=== PATIENT | female | born 1990 | race Two or more races ===

== ENCOUNTER 2016-07-07 20:45 | Inpatient (IN) | payer MEDICAID ==
[2016-07-07] MEDS ORDERED: LIDOCAINE 1% (PRES FREE) 30 ML VIAL ONE (21:15)
[2016-07-07] MEDS ORDERED: MINERAL OIL 25 ML BOT ONE (21:15)
[2016-07-07] MEDS ORDERED: LACTATED RINGERS 1,000 ML ONE (21:15)
[2016-07-07] MEDS ORDERED: OXYTOCIN 10 UNITS/ML VIAL ONE (21:15)
[2016-07-07] MEDS ORDERED: LIDOCAINE Viscous 2% 15 ML UDCUP ONE (21:15)
[2016-07-07] MEDS ORDERED: IV START KIT ONE (21:15)
[2016-07-07] MEDS ORDERED: PUMP TUBING ONE (21:15)
[2016-07-07] MEDS ORDERED: SODIUM CHLORIDE 0.9% FLUSH 10 ML ONE (21:16)
[2016-07-07] MEDS ORDERED: OXYTOCIN IN LR 500 ML IV ONE ×2 (21:16→21:51)
[2016-07-07 23:10] LABS: ABSOLUTE NEUTROPHIL COUNT 5.3 K/mm3 (1.8-7.7); BASO # 0.1 K/mm3 (0.0-0.2); BASO % 0.6 % (0.2-1.0); EOS # 0.1 (0.0-0.5); EOS % 1.6 % (0.9-2.9); HEMATOCRIT 38.9 % (37.0-47.0); IMM NEUT% 0.1 % (0-1); LYMPH # 2.2 (1.0-4.8); LYMPH % 26.8 % (15-45); MEAN CELL VOLUME 85.3 fl (81.0-99.0); MEAN CORPUSCULAR HEMOGLOBIN 28.5 pg (27.0-31.0); MEAN CORPUSCULAR HGB CONC 33.4 g/dl (33.0-37.0); MEAN PLATELET VOLUME 11.1 fl (7.4-10.4); MONO # 0.5 (0.0-0.8); NEUT % 64.9 % (43-75); PLATELET COUNT 142 K/mm3 (130-400); RED CELL DISTRIBUTION WIDTH 13.1 % (11.5-14.5)
[2016-07-07 23:27] LABS: ALB/GLOB RATIO 1.1 (>1.0); ALBUMIN 3.5 gm/dL (3.5-5.7); CALCIUM 8.9 mg/dL (8.6-10.3)
[2016-07-08] MEDS ORDERED: DINOPROSTONE 10 MG SUP VG ONE (00:53)
[2016-07-08] MEDS ORDERED: ZOLPIDEM TARTRATE 5 MG TABLET PO PRN (00:54)
[2016-07-08 01:55] VITALS: BMI 29.0
[2016-07-08] MEDS: LACTATED RINGERS 1,000 ML IV SCH ×7 (06:17→19:59)
--- NOTE | 2016-07-08 08:15 | PDOC36 ---
Provider Note Note: cc: Admission H&P HPI: 26 y.o. year old FABIANO 07/23/2016, by Last Menstrual Period at 37w5d who was seen in the clinic yesterday who was complaining of a 3-4 day history of a chronic frontal headache that has been moderate to severe. She had tried Tylenol for the pain without relief and was also seeing some sparkles in her eyes which was new. The patient was familiar with these symptoms as she has a history of preeclampsia in a previous and was concerned that she may be developing this again as this was similar to her previous presentation. I sent [facility] labs yesterday and have reviewed them. Platelets 228 -> 132, LFTs normal, Protein:Creatinine Ratio 0.7. REVIEW OF SYSTEMS GENERAL:~ No fever EYES:~ As above CARDIOVASCULAR:~ No chest pain. RESPIRATORY:~ No severe shortness of breath or cough. GASTROINTESTINAL:~ No nausea or vomiting or right upper quadrant pain.~ PSYCHIATRIC:~ No anxiety or depression. PROBLEMS GDMA1 History of PreEclampsia History of abnormal LFTs Desires BTL OB HISTORY #: 1, Date: 08/15/06, Sex: Male, Weight: 3 kg (6 lb 9.8 oz), GA: 40w0d, Delivery : Vaginal, Spontaneous Delivery, Apgar1: None, Apgar5: None, Living: Yes, Comments: Dx preeclampsia on last 2 months of .~ #: 2, Date: 08/30/08, Sex: Male, Weight: 3.487 kg (7 lb 11 oz), GA: 39w0d, Delivery: Induction, Apgar1: None, Apgar5: None, Living: Yes, Comments: Vaginal delievery, induced d/t HTN.~ #: 3, Current PSH None SOC HX Reports that she has never smoked. She has never used smokeless tobacco. She reports that she does not drink alcohol or use illicit drugs. ALL No Known Allergies MEDICATIONS ~ Vit-Fe Fumarate-FA ( VITAMINS PLUS) 27-1 MG tablet, Take 1 tablet by mouth daily., Disp: 90 tablet, Rfl: 3 PHYSICAL EXAMINATION VITAL SIGNS:~ AFVSS Estimated body mass index is 33.05 FHT:~ 130s moderate variability positive accels negative decels category I [employer]:~ q5-7 min SVE:~ FT/30/-3 GENERAL:~ No distress CARDIOVASCULAR:~ Regular rate and rhythm, no murmur, JVD or pedal edema. RESPIRATORY:~ Clear to auscultation bilaterally, respiratory effort is nonlabored at rest. GASTROINTESTINAL:~ Gravid no fundal tenderness NEUROLOGIC:~ Deep tendon reflexes are 2+ in the knees.~ Cranial nerves II-XII are grossly intact. PSYCHIATRIC:~ Alert and oriented x3, judgement and memory is intact, mood is pleasant. LABS & STUDIES O+ Antibody- Rubella Immune Hep B- HIV- GC/Chlamydia- Trep- Hgb 13.3 GBS Negative ULTRASOUNDS 19 wk - c/w lmp. normal survey. ant grade 1 placenta, low. rescan in 6wks to recheck placenta. fluid wnl 25 wk - c/w first us. male. transverse. ant grade 1 placenta. no previa. normal fluid. 33 wk - normal growth. vertex male. normal fluid subj ant placenta. grade 1, no previa. ASSESSMENT 26 y.o. year old FABIANO 07/23/2016, by Last Menstrual Period at 37w5d with moderate to severe headache unresponsive to meds as well as visual symptoms as well as dropping platelets with elevated urine protein in the setting someone with preeclampsia. PLAN Atypical PreE: Headache unresponsive to meds, with visual symptoms, dropping platelets (228->132) and 0.7 prot;cr ratio in someone with a h/o preE. Discussed the case with the patient and will admit for induction as the patient is now at term and the patient feels like this is a similar presentation as when with her previous . The risk of waiting at this point would be riskier than inducing. GDMA1: CBGs controlled, CBG today Desires BTL: Papers signed Jose Herrera MD MPH
[2016-07-08] MEDS ORDERED: ACETAMINOPHEN 500 MG TABLET PO PRN (08:46)
--- NOTE | 2016-07-08 08:46 | PDOC36 ---
Provider Note Subject: S: Pt comfortable. Denies FERREIRA or vision changes this morning. O: 113/72 83 Gen: NAD Reflexes: patella 3+, no clonus SVE: 350/-3 [place]: irregular q3-9min FHT: baseline 155bpm/mod isauro/no accels/intermittent variables A/P: 26 yo @ 37w6d, IOL for atypical preE dx by proteinuria (P/C: 0.7), FERREIRA, vision changes. Pt has been normotensive since admission. 1. Labor: cervidil placed at 1am, removed at 6am for recurrent decels. Pt was 1cm at 6am. Pt now 3/50/-3, will start pitocin for augmentation. AROM when head more applied in pelvis. 2. atypical preE: pt currently asx. Will order tylenol for FERREIRA. Will start Mg if pt develops severe range BPs. 3. FWB: cat 2 for intermittent variables. Continue to monitor closely. 4. GBS neg 5. Pain: pt prefers nonmedicated delivery
[2016-07-08] MEDS: OXYTOCIN IN LR 500 ML IV PRN ×11 (09:00→21:48)
--- NOTE | 2016-07-08 20:25 | PDOC36 ---
Provider Note Subject: S: pt comfortable. O: 130/74 68 SVE: 3/50/-3, ballotable head [place]: q2-3m FHT: baseline 145bpm/mod isauro/+accels/intermittent variables A/P: 26 yo @ 37w6d, IOL for atypical preE. Latent labor: pt on pitocin, not uncomfortable or making much cervical change. head not yet engaged for AROM. Will continue to titrate pitocin. FWB: Cat 2 now for intermittent variables but overall reassuing. Atypical PreE: pt asx, BP stable. GBS neg Pain: declines meds, pt is comfortable
--- NOTE | 2016-07-08 20:27 | PDOC36 ---
Provider Note Subject: FHT was notable for recurrent late decels x 1 hour, moderate variability. SVE was 4/60/-3, still with ballotable head. Plan to dc pitocin x 1 hour to allow for recovery. Will attempt to AROM or restart pitocin after recovery period.
--- NOTE | 2016-07-08 21:56 | PDOC36 ---
Provider Note Subject: S: pt comfortable, but feeling very tired. Requested no AROM at this time, would like to try to rest tonight. O: 126/74 63 SVE: deferred, last check /-3 per RN @ 2039 [place]: q4-5min FHT: baseline 145bpm/mod isauro/+accels/ no decels A/P: 26 yo @ 37w6d, IOL for atypical preE. Labor: latent labor. Was planning to AROM pt, but pt declined and requested to wait until she is more painful or in active labor. She would like to rest a little bit tonight. Discussed with pt plan to restart pitocin and she was agreeable. Atypical preE: pt asx, will recheck PIH labs in am FWB: now category 1, since pitocin was turned off @ 1919.
[2016-07-09] MEDS: LACTATED RINGERS 1,000 ML IV SCH (03:06)
[2016-07-09 07:33] LABS: RED CELL DISTRIBUTION WIDTH 13.2 % (11.5-14.5)
--- NOTE | 2016-07-09 07:36 | PDOC36 ---
Provider Note Subject: I am assuming care of Yen this am. In brief 26 yo @ 38w0d, IOL for atypical preE with elevated Pr/Cr ratio of 0.7 with normal BP's throughout hospitalization and history of prior two pregnancies affected by preeclampsia. S: Feeling more pain with contractions and appears to be entering active phase. O: 132/68 P 53 T 36.7 SVE: 5/80/0 [place]: q2-3 min FHT: baseline 140bpm/mod isauro/+accels/ no decels Pit at 8 A/P: 26 yo @ 38w0d, IOL for atypical preE. Labor: AROM just performed. Currently progressing into active labor and more painful. Anticipate . Continue with pit. Atypical preE: pt asx, Recheck PIH labs this am. Given BP's have not been above threshold of 140's I don't feel strongly about magnesium at this time. Observe for now. FWB: category 1 RH + GBS neg
[2016-07-09 07:55] LABS: ALBUMIN 3.2 gm/dL (3.5-5.7); CALCIUM 8.7 mg/dL (8.6-10.3)
[2016-07-09 07:56] LABS: HEMATOCRIT 39.1 % (37.0-47.0); HEMOGLOBIN 13.4 gm/l (12.0-16.0); MEAN CELL VOLUME 84.8 fl (81.0-99.0); MEAN CORPUSCULAR HEMOGLOBIN 29.1 pg (27.0-31.0); MEAN CORPUSCULAR HGB CONC 34.3 g/dl (33.0-37.0)
--- NOTE | 2016-07-09 08:30 | PCMDEL ---
Delivery Note - Labor 1st stage (hr/min):: 3 hours 2nd stage (hr/min):: 4 min 3rd stage (hr/min):: 4 min Total (hr/min):: 3 hours Pushed (hr/min):: 4 min - Delivery Delivery (Date): 07/09/16 Delivery (Time): 08:16 Infant Gender: Male Presentation: Cephalic Position: OA Umbilical Cord: 3 Vessel Delayed Cord Clamping:: < 1-2 min 1 Minute Total: 9 5 Minute Total: 9 Placenta:: Intact EBL:: 300 Perineum:: intact Comments:: Presented for IOL for atypical preeclampsia/HELLP syndrome. Started with cervidil x 1. Transitioned to pitocin augmentation. AROM performed and quickly progressed to complete. Delivered via with normal maternal efforts. monitoring category I during delivery. Vigorous . Delayed cord clamping x 90 sec. Active third stage of labor with pit and fundal massage.
[2016-07-09] MEDS ORDERED: MAGNESIUM HYDROXIDE 30 ML UDCUP PO PRN (08:35)
[2016-07-09] MEDS ORDERED: BENZOCAINE/MENTHOL 60 APPLIC/BOT TP PRN (08:35)
[2016-07-09] MEDS ORDERED: DOCUSATE SODIUM 100 MG CAPSULE PO PRN (08:35)
[2016-07-09] MEDS ORDERED: LANOLIN 50 APPLIC/7G TUBE TP PRN (08:35)
[2016-07-09] MEDS: IBUPROFEN 800 MG TABLET PO PRN ×2 (08:52→21:05)
[2016-07-10 06:32] LABS: HEMATOCRIT 31.2 % (37.0-47.0); HEMOGLOBIN 10.3 gm/l (12.0-16.0)
[2016-07-10] MEDS ORDERED: CEFAZOLIN SODIUM 2 GRAM DUPLEX 50 ML IV ONE ×2 (07:04→09:30)
[2016-07-10] MEDS ORDERED: LACTATED RINGERS 1,000 ML ONE (07:04)
[2016-07-10] MEDS: LACTATED RINGERS 1,000 ML IV SCH (07:17)
[2016-07-10] MEDS ORDERED: CITRIC ACID/SODIUM CITRATE 15 ML UDCUP PO ONE (09:00)
[2016-07-10] MEDS ORDERED: FENTANYL 100 MCG/2 ML VIAL ONE ×2 (09:05→11:05)
[2016-07-10] MEDS ORDERED: MIDAZOLAM HCL 1 MG/ML 2ML VIAL ONE (09:05)
[2016-07-10] MEDS ORDERED: LIDOCAINE 2% (PRES FREE) 5 ML VIAL ONE (09:05)
[2016-07-10] MEDS ORDERED: PROPOFOL 20 ML IV ONE (09:05)
[2016-07-10] MEDS ORDERED: SPINAL PROCEDURAL TRAY 1 EACH ONE (09:05)
[2016-07-10] MEDS ORDERED: HYDROCODONE/ACETAMINOPHEN 5/325MG TABLET PO PRN (10:21)
[2016-07-10] MEDS ORDERED: LANOLIN 50 APPLIC/7G TUBE TP PRN (10:21)
[2016-07-10] MEDS ORDERED: BENZOCAINE/MENTHOL 60 APPLIC/BOT TP PRN (10:21)
[2016-07-10] MEDS ORDERED: IBUPROFEN 800 MG TABLET PO PRN (10:21)
--- NOTE | 2016-07-10 10:21 | PCMBTL ---
Brief Post Op Note: Date of Procedure: 07/10/16 Start Time: 0900 Preoperative Diagnosis: undesired fertility Postoperative Diagnosis: same Procedure: PP BTL Surgeon: Rosemary Villarreal MD Assist: Dr. Gordon Anesthesia: spinal Findings: normal ovaries, tubes, and uterus Condition: stable Complications: none IV Fluids: 1000 mLs of LR Urine Output: 50 mLs Estimated Blood Loss: 5 mLs Specimens: bilateral tube segments patient taken to the operating room where spinal anesthesia was felt to be adequate, patient prepped and draped in sterile fashion, 2 cm infraumbilical incision made with scalpal and carried through to underlying layer of fascia, fascia entered with scalpal and incision extended katerally. the alaina 0 used and the right tube was ligated and excised 2 cm and cauterized ends, and the left tube was grasped and a 2 cm segment ligated with 0 plain gut and excised and cauterized the ends. fascia reapproximated with 0 vicryl, and skin closed with 4.0 vicryl. no complications. patient taken to recovery in stable condition.
[2016-07-10] MEDS: FENTANYL 100 MCG/2 ML VIAL IV PRN ×2 (11:11→11:15)
--- NOTE | 2016-07-10 12:27 | PDOC44 ---
- Subjective Day: 1 Reports Pain Tolerable, Reports , Reports Lochia Light, Reports Tolerating Regular Diet, Denies Nausea, Denies Vomiting, Denies Fever - Objective Temp Pulse Resp BP Pulse Ox 98 F 66 16 135/85 97 07/10/16 11:59 07/10/16 11:59 07/10/16 11:59 07/10/16 11:59 07/10/16 11:59 Lab Results 07/10/16 05:20 Hgb 10.3 L D Hct 31.2 L Current Medications Generic Name Dose Route Start Last Admin Trade Name Freq PRN Reason Stop Dose Admin Acetaminophen/Hydrocodone Bitart 1 - 2 tab 07/09/16 08:35 [place] 5/325 PO Q4H PRN Pain (Moderate) Benzocaine/Menthol 1 applic 07/09/16 08:35 Dermoplast TP PRN PRN Patient Comfort Docusate Sodium 100 mg 07/09/16 08:35 Colace PO DAILY PRN Comfort Emollient Ointment 1 applic 07/09/16 08:35 07/09/16 08:53 [id number] TP 1 gtts PRN PRN Administration sore nipples Fentanyl Citrate 50 mcg 07/10/16 11:06 07/10/16 11:15 Fentanyl IV 50 mcg Q1H PRN Administration Pain Ibuprofen 800 mg 07/09/16 08:35 07/09/16 21:05 Motrin PO 800 mg Q6H PRN Administration Pain (Mild) Magnesium Hydroxide 30 ml 07/09/16 08:35 Milk Of Magnesia PO BEDTIME PRN Constipation Sodium Chloride 10 ml 07/09/16 08:35 07/10/16 05:30 Normal Saline 10ml Flush IV 10 ml PRN PRN Administration IV Flush - Physical Exam General: Afebrile, No Acute Distress Psych/Mental Status: Mood/Affect Appropriate, Bonding Well Neurological: Alert, Oriented x 4 Lungs: Clear to Auscultation Bilaterally Cardiovascular: Regular Rate and Rhythm Breast: Nipples Intact Fundus: Firm, Midline Extremities: Full ROM, No Edema, No Tenderness Skin: Normal Color, Warm, Dry, Intact, No Rash Wound 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 Doing well. (2) Preeclampsia Status: AcuteAssessment/Plan: BP's stable. Labs stable throughout course. Asymptomatic. (3) Encounter for tubal ligation Status: AcuteAssessment/Plan: s/p tubal ligation. Routine care and d/c tomorrow. Disposition: Anticipate DC Home Tomorrow
[2016-07-10] MEDS: IBUPROFEN 800 MG TABLET PO PRN (14:56)
[2016-07-10] MEDS: HYDROCODONE/ACETAMINOPHEN 5/325MG TABLET PO PRN (14:57)
[2016-07-11] MEDS: HYDROCODONE/ACETAMINOPHEN 5/325MG TABLET PO PRN (02:35)
[2016-07-11] MEDS: IBUPROFEN 800 MG TABLET PO PRN (02:35)
[2016-07-11 06:46] LABS: HEMATOCRIT 34.5 % (37.0-47.0); HEMOGLOBIN 11.6 gm/l (12.0-16.0)
[2016-07-11 08:36] VITALS: BP 118/77
--- NOTE | 2016-07-11 12:07 | PDOC39B ---
Hospital Course: ADMIT DATE: 07/07/16 DISCHARGE DATE: 07/11/16 ADMISSION DIAGNOSES: Intrauterine at term, atypical preeclampsia, gestational diabetes type A1 PROCEDURES: bilateral tubal ligation HISTORY OF PRESENT ILLNESS: 26 year old G3 T2 L2 at 38 weeks 0 days presented with headaches and vision changes, and proteinuria. Given her history of preeclampsia and neurologic symptoms, pt was admitted for induction of labor due to atypical preeclampsia. HOSPITAL COURSE: The patient delivered on 07/09/16 and underwent a tubal ligation on 07/10/16. By day of discharge the patient is ambulating, eating, voiding, and passing flatus without difficulty. Pain is controlled and lochia is appropriate. She is with supplementation of donor milk. - Physical Exam Vital Signs: Temp Pulse Resp BP Pulse Ox 97.3 F 70 16 118/77 97 07/11/16 08:36 07/11/16 08:36 07/11/16 08:36 07/11/16 08:36 07/10/16 12:55 General: Afebrile Psych/Mental Status: Mood/Affect Appropriate, Bonding Well Neurological: Grossly Intact, Alert HEENT: Atraumatic, EOMI Lungs: Clear to Auscultation Bilaterally, Normal Air Movement Cardiovascular: Regular Rate and Rhythm, Normal S1, Normal S2, No Murmur Breast: Soft, Skin intact Fundus: Firm, Midline, Below Umbilicus Wound: Dressing in Place, Dressing Clean/Dry/Intact - Discharge Diagnosis (1) (normal spontaneous vaginal delivery) Status: AcuteAssessment/Plan: Routine PP care. Doing well. (2) Preeclampsia Status: AcuteAssessment/Plan: BP's stable. Labs stable throughout course. Asymptomatic. (3) Encounter for tubal ligation Status: AcuteAssessment/Plan: s/p tubal ligation. Routine care, incision check in 2 weeks. - Discharge Plan Condition: Stable Disposition: Home Instruction Forms: Vaginal Discharge Instructions Prescriptions: Docusate Sodium [COLACE 100 MG CAPSULE (SHF)] 100 mg PO DAILY PRN #100 capsule PRN Reason: Comfort Hydrocodone/Acetaminophen [Hydrocodon-Acetaminophen 5-325] 1 tab PO Q4H PRN #20 PRN Reason: Pain Ibuprofen [IBUPROFEN 800 MG TABLET (SHF)] 800 mg PO Q8H PRN #100 tablet PRN Reason: Pain (Mild) Follow-Up: Chevy Rosario PA-C [Primary Care Provider] - In 2 weeks (pp BTL incision check)
--- NOTE | 2016-07-13 13:16 | SURGPATH ---
[facility] [address] [place] [id number] Patient Name: KAILA SOSA MR#: [id number] : 1990 Gender: F Specimen #: [id number] Collected: 07/10/2016 Received: 07/12/2016 Reported: 07/13/2016 Submitting Phys: JACKY PATE Copy To Phys: SILV [facility] [place], ALEXIS ANGELES V Clinical History / Pre-Operative Diagnosis: NONE PROVIDED Specimen Source / Surgical Procedure Performed: RIGHT AND LEFT TUBAL SEGMENTS (RIGHT WITH STITCH) Interpretation: FALLOPIAN TUBES, RIGHT AND LEFT, TUBAL LIGATION: - COMPLETE CROSS SECTIONS OF RIGHT AND LEFT FALLOPIAN TUBES Electronically Signed Out Lucero Braga M.D. Gross Description: The specimen is received in a formalin filled container labeled with the patient's name and "right and left tubal segment". Two cylindrical segments of [place] tissue are 1.3 x 0.5 cm and 1.5 x 0.5 cm. The longer segment has attached suture and is inked black. A computer help desk representative cross section of each is submitted in one cassette. Denis Hart PKenia Microscopic Description: Complete cross-sections of inked and uninked fallopian tubes are seen, without significant pathologic changes. 1: [id number] Z30.2
== END 2016-07-11 14:10 | disposition home or self-care (01) | DRG 767 ==
LOC: FBC 20:45 → EDSTATUS 07-23 20:44
PROVIDERS: ADMIT Family Medicine; ATTEND Family Medicine
PROC: 3E0P7GC Introduction of Other Therapeutic Substance into Female Reproductive, Via Natural or Artificial Opening (ICD-10-PCS; 2016-07-07)
PROC: 10907ZC Drainage of Amniotic Fluid, Therapeutic from Products of Conception, Via Natural or Artificial Opening (ICD-10-PCS; 2016-07-08)
PROC: 10E0XZZ Delivery of Products of Conception, External Approach (ICD-10-PCS; principal; 2016-07-09)
PROC: 0UL70ZZ Occlusion of Bilateral Fallopian Tubes, Open Approach (ICD-10-PCS; 2016-07-10)
DX: O14.94 Unspecified pre-eclampsia, complicating childbirth (principal); O76 Abnormality in fetal heart rate and rhythm complicating labor and delivery; O62.1 Secondary uterine inertia; O24.420 Gestational diabetes mellitus in childbirth, diet controlled; Z30.2 Encounter for sterilization; Z3A.38 38 weeks gestation of pregnancy; Z37.0 Single live birth